=== PATIENT | male | born 1995 | race American Indian/Alaskan Native ===

== ENCOUNTER 2020-11-24 18:23 | Emergency (ER) | payer SELFPAY ==
[2020-11-24 18:40] VITALS: BP 134/54
[2020-11-24] MEDS ORDERED: LIDOCAINE-MPF (1%) 10 MG/1 ML VIAL 5 ML INFILTRATI ONE (18:58)
--- NOTE | 2020-11-24 18:58 | Emergency Department Report ---
ED General Adult HPI - General Chief complaint: Urogenital-Male Stated complaint: PAIN Time Seen by Provider: 11/24/20 18:47 Source: patient Mode of arrival: Ambulatory Limitations: No Limitations - History of Present Illness Initial comments: 25-year-old -Swedish male patient presents with complaints of burning urination in penile discharge x2 days. He admits to recent unprotected intercourse. He denies any penile lesions/swelling, testicular lesions/swelling, hematuria, abdominal pain, testicular pain, or arthralgias/swollen hot joints. No past medical history per patient. -: Sudden - Related Data Previous Rx's Medication Instructions Recorded Last Taken Type Doxycycline Monohydrate 100 mg PO BID 7 Days #14 capsule 11/24/20 Unknown Rx [Doxycycline Monohydrate CAP] Allergies Allergy/AdvReac Type Severity Reaction Status Date / Time No Known Allergies Allergy Verified 11/24/20 18:37 ED Review of Systems ROS: Stated complaint: PAIN Other details as noted in HPI Constitutional: denies: chills, diaphoresis, fever, malaise, weakness Gastrointestinal: denies: abdominal pain Genitourinary: dysuria, discharge. denies: hematuria, testicular pain, testicular mass Musculoskeletal: denies: joint swelling, arthralgia ED Past Medical Hx - Past Medical History Previous Medical History?: No - Surgical History Past Surgical History?: No - Medications Home Medications: Home Medications Medication Instructions Recorded Confirmed Last Taken Type Doxycycline Monohydrate 100 mg PO BID 7 Days #14 capsule 11/24/20 Unknown Rx [Doxycycline Monohydrate CAP] ED Physical Exam - General Limitations: No Limitations General appearance: alert, in no apparent distress - Head Head exam: Present: atraumatic, normocephalic - Eye Eye exam: Present: normal appearance - Respiratory Respiratory exam: Absent: respiratory distress - Cardiovascular Cardiovascular Exam: Present: regular rate - GI/Abdominal GI/Abdominal exam: Absent: tenderness - exam: Present: other (Deferred palpitation) - Neurological Exam Neurological exam: Present: alert, oriented X3 - Psychiatric Psychiatric exam: Present: normal affect, normal mood - Skin Skin exam: Present: warm, dry, intact, normal color. Absent: rash ED Course Vital Signs 11/24/20 18:39 Temperature 98.3 F Pulse Rate 74 Respiratory 16 Rate Blood Pressure 134/54 O2 Sat by Pulse 97 Oximetry ED Medical Decision Making - Medical Decision Making 25-year-old -Swedish male patient presents with complaints of burning urination in penile discharge x2 days. He admits to recent unprotected intercourse. He denies any penile lesions/swelling, testicular lesions/swelling, hematuria, abdominal pain, testicular pain, or arthralgias/swollen hot joints. No past medical history per patient. Empiric treatment given for gonorrhea chlamydia. Patient to follow-up with his PCP or with the health department for further STD testing. Patient also informed to have his partner get tested and treated and refrain from any sexual intercourse for minimum of 2 weeks. He is well-appearing, his vitals are normal, he is stable for discharge home. Discussed signs and symptoms that should prompt immediate return to the emergency department in detail patient verbalized understanding. Critical care attestation.: If time is entered above; I have spent that time in minutes in the direct care of this critically ill patient, excluding procedure time. ED Disposition Clinical Impression: Dysuria Disposition: 01 HOME / SELF CARE / HOMELESS Is pt being admited?: No Instructions: Dysuria, Safe Sex Additional Instructions: These follow-up with your primary care provider or the health department for further STD testing Prescriptions: Doxycycline Monohydrate [Doxycycline Monohydrate CAP] 100 mg PO BID 7 Days #14 capsule Referrals: [facility] [Provider Group] - 3-5 Days
== END 2020-11-25 16:02 | disposition home or self-care (01) ==
LOC: ED 18:23
DX: R30.0 Dysuria (principal)
CPT/HCPCS: 96372; 99281; J0696

== ENCOUNTER 2021-01-22 18:07 | Emergency (ER) | payer SELFPAY ==
[2021-01-22 19:39] VITALS: BP 130/79
[2021-01-22] MEDS ORDERED: LIDOCAINE-MPF (1%) 10 MG/1 ML VIAL 5 ML INFILTRATI ONE (19:55)
--- NOTE | 2021-01-22 19:55 | Emergency Department Report ---
ED Male HPI - General Chief complaint: Urogenital-Male Stated complaint: white stuff coming out my private part and it burn Time Seen by Provider: 01/22/21 19:45 Source: patient Mode of arrival: Ambulatory Limitations: No Limitations - History of Present Illness Initial comments: Patient is a 25-year-old male presents emergency room complaints of dysuria that began 5 days ago. He has associated white penile discharge. He denies any fever, nausea, vomiting, diarrhea, hematuria diarrhea, urinary retention, abdominal pain, pain or swelling the testicles. He reports that he had unprotected intercourse with his female partner and his partner is also having symptoms. Patient reports that he has had a STD in the past but he is not sure which one he had. No allergies to medications - Related Data Previous Rx's Medication Instructions Recorded Last Taken Type Doxycycline Monohydrate 100 mg PO BID 7 Days #14 capsule 11/24/20 Unknown Rx [Doxycycline Monohydrate CAP] Doxycycline Hyclate [Doxycycline 100 mg PO BID 7 Days #14 tab 01/22/21 Unknown Rx Hyclate TAB] metroNIDAZOLE [Flagyl] 500 mg PO BID 7 Days #14 tablet 01/22/21 Unknown Rx Allergies Allergy/AdvReac Type Severity Reaction Status Date / Time No Known Allergies Allergy Verified 01/22/21 19:39 ED Review of Systems ROS: Stated complaint: white stuff coming out my private part and it burn Other details as noted in HPI Comment: All other systems reviewed and negative ED Past Medical Hx - Past Medical History Previous Medical History?: No - Surgical History Past Surgical History?: No - Medications Home Medications: Home Medications Medication Instructions Recorded Confirmed Last Taken Type Doxycycline Monohydrate 100 mg PO BID 7 Days #14 capsule 11/24/20 Unknown Rx [Doxycycline Monohydrate CAP] Doxycycline Hyclate [Doxycycline 100 mg PO BID 7 Days #14 tab 01/22/21 Unknown Rx Hyclate TAB] metroNIDAZOLE [Flagyl] 500 mg PO BID 7 Days #14 tablet 01/22/21 Unknown Rx ED Physical Exam - General Limitations: No Limitations General appearance: alert, in no apparent distress - Head Head exam: Present: atraumatic, normocephalic - Eye Eye exam: Present: normal appearance - ENT ENT exam: Present: mucous membranes moist - Respiratory Respiratory exam: Absent: respiratory distress, accessory muscle use - Neurological Exam Neurological exam: Present: alert, oriented X3 - Psychiatric Psychiatric exam: Present: normal affect, normal mood - Skin Skin exam: Present: warm, dry ED Course Vital Signs 01/22/21 01/22/21 19:37 20:37 Temperature 98.5 F Pulse Rate 75 65 Respiratory 17 15 Rate Blood Pressure 130/79 [Right] O2 Sat by Pulse 99 100 Oximetry ED Medical Decision Making - Medical Decision Making Patient is a 25-year-old male presents emergency room complaints of dysuria that began 5 days ago. He has associated white penile discharge. He denies any fever, nausea, vomiting, diarrhea, hematuria diarrhea, urinary retention, abdominal pain, pain or swelling the testicles. He reports that he had unprotected intercourse with his female partner and his partner is also having symptoms. Patient reports that he has had a STD in the past but he is not sure which one he had. No allergies to medications. Vitals are stable. Symptoms appear likely consistent with STD. Patient is not having any clinical symptoms of orchitis, epididymitis or torsion. Patient given Rocephin IM in the emergency department. Patient given prescription for medication. Advised patient Please take medication as prescribed to completion. Be sure to take antibiotics with food. Increase your water intake. Please have any partners tested and treated as well. Avoid sexual intercourse. Please follow-up with the clinic or health department or to have a full STD panel. Return to emergency room for any new or worsening symptoms. Critical care attestation.: If time is entered above; I have spent that time in minutes in the direct care of this critically ill patient, excluding procedure time. ED Disposition Clinical Impression: Dysuria, Penile discharge, Concern about STD in male without diagnosis Disposition: 01 HOME / SELF CARE / HOMELESS Is pt being admited?: No Does the pt Need Aspirin: No Condition: Stable Instructions: Safe Sex Additional Instructions: Please take medication as prescribed to completion. Be sure to take antibiotics with food. Increase your water intake. Please have any partners tested and treated as well. Avoid sexual intercourse. Please follow-up with the clinic or health department or to have a full STD panel. Return to emergency room for any new or worsening symptoms. walk in clinic: [facility] [facility] in [place], [place] Address: [address] [place] [address], [place] [address] Prescriptions: Doxycycline Hyclate [Doxycycline Hyclate TAB] 100 mg PO BID 7 Days #14 tab metroNIDAZOLE [Flagyl] 500 mg PO BID 7 Days #14 tablet Referrals: [facility] [Outside] - 3-5 Days Time of Disposition: 19:54 Print Language: ECU[place]ORE[place]
== END 2021-01-22 20:37 | disposition home or self-care (01) ==
LOC: ED 18:07
DX: R30.0 Dysuria (principal); Z20.2 Contact with and (suspected) exposure to infections with a predominantly sexual mode of transmission; R36.9 Urethral discharge, unspecified; Z79.899 Other long term (current) drug therapy
CPT/HCPCS: 96372; 99282; J0696; J3490